=== PATIENT | female | born 1990 | race Caucasian/White ===

== ENCOUNTER 2019-03-25 04:26 | Inpatient (IN) | payer OTHER ==
[2019-03-25] MEDS ORDERED: BUTORPHANOL 1 MG/ML INJ IV PRN (04:50)
[2019-03-25] MEDS ORDERED: PENICILLIN 5 MU in NA CHLORIDE 0.9% 100 ML IV ONE (04:50)
[2019-03-25] MEDS ORDERED: PROMETHAZINE 25 MG/ML VIAL IM PRN (04:50)
[2019-03-25] MEDS ORDERED: Ringers Lactate 1,000 ML IV PRN (04:50)
[2019-03-25] MEDS ORDERED: METHYLERGONOVINE 0.2MG/ML AMP IM PRN (04:50)
[2019-03-25] MEDS ORDERED: CARBOPROST TROME 250 MCG/ML IM PRN (04:50)
[2019-03-25] MEDS ORDERED: Ringers Lactate 1,000 ML IV SCH (05:00)
[2019-03-25] MEDS ORDERED: OXYTOCIN/LR 20 UNITS/1,000 ML BAG IV SCH (05:00)
[2019-03-25 05:14] LABS: RPR Titer ND
[2019-03-25 05:17] LABS: Urine Appearance CLOUDY; Urine Bilirubin NEGATIVE (NEG); Urine Blood NEGATIVE (NEG); Urine Color YELLOW; Urine Glucose NEGATIVE (NEG); Urine Protein NEGATIVE (NEG); Urine Urobilinogen 0.2 mg/dL (0.2-1.0); Urine pH 6.5 (5.0-7.0)
[2019-03-25 05:18] LABS: Absolute Lymphocytes (CBC) 2.9 K/uL (0.7-4.9); Absolute Monocytes 1.2 K/uL (0.1-1.3); Absolute Neutrophil 10.7 K/uL (1.8-8.0); Basophils % 0.4 % (0-1.3); Eosinophils % 0.8 % (0-4.4); Hematocrit 30.3 % (36.0-45.0); Lymphocytes % 19.1 % (15.3-44.8); MPV 7.7 fL (7.6-11.3); RBC Red Blood Cell Count 3.68 M/uL (3.86-4.86)
[2019-03-25 05:25] LABS: Urine Microscopic Reflex ORDER UMIC
[2019-03-25 05:30] LABS: Urine Bacteria 20-50 /HPF (<20); Urine Culture Reflex Order REFLEXED; Urine RBC NONE SEEN /HPF (NONE SEEN)
[2019-03-25 05:49] VITALS: BMI 39.3
[2019-03-25] MEDS ORDERED: PENICILLIN 2.5 MU in NA CHLORIDE 0.9% 100 ML IV SCH (09:00)
[2019-03-25] MEDS ORDERED: LIDOCAINE 1% MPF 30 ML VIAL ONE (09:16)
[2019-03-25] MEDS ORDERED: BISACODYL 10 MG RECTAL SUPP RECT PRN (09:40)
[2019-03-25] MEDS ORDERED: ACETAMINOPHEN 500 MG TAB PO PRN (09:40)
[2019-03-25] MEDS ORDERED: DOCUSATE NA/SENNA CONC 1 TAB PO PRN (09:40)
[2019-03-25] MEDS ORDERED: Oxycodone HCl/Acetaminophen 1 TAB TAB PO PRN ×2 (09:40)
[2019-03-25] MEDS ORDERED: DIPHENHYDRAMINE 25 MG TAB/CAP PO PRN (09:40)
[2019-03-25] MEDS ORDERED: IBUPROFEN 200 MG TAB PO PRN (09:40)
[2019-03-25] MEDS ORDERED: OXYTOCIN/LR 20 UNIT/1,000 ML BAG IV SCH (10:00)
--- NOTE | 2019-03-25 13:49 | PREOPHP ---
Date of Admission: 03/25/2019 This is a 29-year-old female, 2, para 1, 39 weeks gestation, had been on thyroid me dications during the . Large body habitus. The patient is 3 cm, 60% effaced, vertex, -1 st ation. Darius regularly. Beta strep positive. She has received 1 dose of antibiotics at this point. We will continue of course during the labor. Full admission talk given. Rupture of membrane s, clear fluid. Anticipate more active labor, as the day progresses. KRYSTIN/MIK Voice ID: [id number]
[2019-03-25] MEDS: METHYLERGONOVINE 0.2 MG TAB PO PRN ×3 (14:02→22:00)
[2019-03-25] MEDS ORDERED: Ringers Lactate 1,000 ML IV ONE (14:39)
--- NOTE | 2019-03-25 14:42 | OP ---
Surgeon: Van Mahmood MD A 29-year-old, 2, para 1, 39 weeks gestation. Rh positive. Immune to Rubella. Positive bet a strep screen, 3 cm on admission. Rupture of membranes, clear fluid. The patient received 1 dose o f 5 million units of penicillin during the labor. After membrane rupture, went into active labor, we nt rapidly to complete. Second stage of 10 minutes or less. Spontaneous vaginal delivery of an paulie mated 8.5- to 9-pound male infant, Apgars 9 and 9. Loose nuchal cord x1. Second-degree laceration s imulating episiotomy, repaired with 2-0 chromic after local infiltration. Schultze delivery of the p lacenta, which was inspected and noted to be intact and normal. A 350 cc or less blood loss. The pa tient tolerated all procedures well. Final Diagnoses: 1.Term uterine , 39 weeks. 2.Thyroid medications have been taking during the . 3.Vaginal delivery. 4.Penicillin prophylaxis. KRYSTIN/MIK Voice ID: [id number] Report ID: [id number]
[2019-03-26] MEDS: METHYLERGONOVINE 0.2 MG TAB PO PRN (02:00)
[2019-03-26 05:08] LABS: RPR (Rapid Plasma Reagin) NON-REACT (NON-REACT)
[2019-03-26 07:24] VITALS: BP 126/84; TEMP 97.9
--- NOTE | 2019-03-27 11:39 | DS ---
Date of Discharge: 03/26/2019 Hospital Course: A 29-year-old female 2, para 1, 39 weeks. Delivered an 8 pounds 7-ounce male infant, Apgars 9 and 9. No episiotomy but a second-degree laceration simulating episiot mony, repaired with 2-0 chromic. Schultze delivery of the placenta, which was inspected and noted to be intact and normal. 350 cc blood loss. Penicillin prophylaxis x1 during the labor. Post i s afebrile, ambulating, voiding, lochia is normal. The patient's pulse has been a little high but in the 100 range but she says she is completely without any symptoms and the lochia is normal. She sangita l be dismissed later today to report back to my office in 6 weeks for followup. To report any temper ature elevation of 100 degrees or greater, severe pain, heavy bleeding, or any other type of abnormal ities. Dismissed with tramadol for analgesia although she may elect to take Motrin instead. She has had her Tdap immunization. Final Diagnoses: Term uterine 39 weeks. Vaginal delivery. Penicillin prophylaxis. KRYSTIN/MIK Voice ID: [id number] Report ID: [id number]
[2019-03-27 13:01] LABS: HBsAG Nonreactive (Nonreactive)
== END 2019-03-26 12:15 | disposition home or self-care (01) | DRG 807 ==
LOC: 2ND-WC 04:26
PROVIDERS: ADMIT Specialist; ATTEND Specialist
PROC: 10E0XZZ Delivery of Products of Conception, External Approach (ICD-10-PCS; principal; 2019-03-25)
PROC: 0KQM0ZZ Repair Perineum Muscle, Open Approach (ICD-10-PCS; 2019-03-25)
DX: O99.284 Endocrine, nutritional and metabolic diseases complicating childbirth (principal); Z37.0 Single live birth; O70.1 Second degree perineal laceration during delivery; O69.81X0 Labor and delivery complicated by cord around neck, without compression, not applicable or unspecified; Z3A.39 39 weeks gestation of pregnancy; E03.9 Hypothyroidism, unspecified; O99.824 Streptococcus B carrier state complicating childbirth
CPT/HCPCS: 36415; 81003; 81015; 82962; 85025; 86592; 86901; 87086; 87088; 87340; J0595; J2210; J2550; J2590

== ENCOUNTER 2022-03-23 03:59 | Inpatient (IN) | payer BC ==
[~2022-03-23 03:59] MED LIST: Ringers Lactate 1,000 ML IV PRN
[2022-03-23] MEDS ORDERED: OXYTOCIN/LR 1,000 ML IV SCH (04:00)
[2022-03-23] MEDS ORDERED: PROMETHAZINE INJ 25 MG/ML AMP IM PRN (04:00)
[2022-03-23] MEDS ORDERED: CARBOPROST TROME 250 MCG/ML IM PRN (04:00)
[2022-03-23] MEDS ORDERED: BUTORPHANOL 1 MG/ML INJ IV PRN (04:00)
[2022-03-23] MEDS ORDERED: METHYLERGONOVINE 0.2MG/ML AMP IM PRN (04:00)
[2022-03-23] MEDS: Ringers Lactate 1,000 ML IV SCH ×2 (04:11→08:25)
[2022-03-23] MEDS: PENICILLIN 5 MU in NA CHLORIDE 0.9% 100 ML IV ONE ×2 (04:11→04:26)
[2022-03-23] MEDS ORDERED: PENICILLIN G POT 5 MU/VIAL IV ONE (04:13)
[2022-03-23] MEDS ORDERED: OXYTOCIN/LR 20 UNIT/1,000 ML BAG IV ONE (04:13)
[2022-03-23] MEDS ORDERED: NA CHLORIDE 0.9% 1,000 ML ONE (04:14)
[2022-03-23] MEDS ORDERED: NA CHLORIDE 0.9% 100 ML ONE (04:14)
[2022-03-23] MEDS: OXYTOCIN/LR 20 UNIT/1,000 ML BAG IV SCH ×2 (04:18→04:55)
[2022-03-23 05:10] VITALS: BMI 39.6
[2022-03-23 06:26] LABS: Hematocrit 29.6 % (36.0-45.0); Lymphocytes % 20.3 % (15.3-44.8); MPV 6.7 fL (7.6-11.3); RBC Red Blood Cell Count 3.81 M/uL (3.86-4.86)
[2022-03-23 06:26] LABS: Urine Appearance Clear (Clear); Urine Bilirubin Negative (Negative); Urine Blood Negative (Negative); Urine Color Yellow (Yellow); Urine Glucose Negative (Negative); Urine Protein Negative (Negative); Urine Urobilinogen 0.2 mg/dL (0.2-1.0)
[2022-03-23 06:33] LABS: Urine Microscopic Reflex NO UMIC
[2022-03-23] MEDS ORDERED: PENICILLIN 2.5 MU in NA CHLORIDE 0.9% 100 ML IV SCH (09:00)
--- NOTE | 2022-03-23 09:51 | PN ---
The patient is 3 cm, 50% to 60% effaced, but the baby initially was against the cervix and then moved higher with the exam. I think it is prudent to wait for the baby to come down lower before we attem pt membrane of rupture. This was discussed with the patient and . She knows the membrane of rupture occurs on its own. She is to tell the nurse, so we make sure there is no cord problem. KRYSTIN/MIK Voice ID: [id number] Report ID: [id number]
--- NOTE | 2022-03-23 09:51 | PREOPHP ---
Date of Admission: 03/23/2022 History Of Present Illness: Jayla Babin is a -kimb-ptk, 3, para 2, 39 weeks gest ation, for induction. Pros and cons of this thoroughly discussed prior to admission. Family History: Maternal grandmother with gallstones. Father with kidney stones. Past Medical History: No serious medical illnesses. Past Surgical History: No past surgeries. Allergies: NO ALLERGIES. Medications: vitamins prior to admission. Social History: Does not smoke. Physical Examination: HEENT: Clear. Pupils equal, round, reactive to light and accommodation. Conjunctivae well perfused . No oral, lingual, or buccal lesions. Chest and Lungs: Clear. Heart: Without murmurs, thrills, heaves, or rubs. Breasts: Not examined, but on previous visits without masses. Abdomen: Massively obese. Extremities: Clear. Assessment And Plan: Pelvic exam in the office was 3 cm with vertex was still high, today cannot get to the cervix as this in posterior position in the bed and will allow a good exam without discomfort . We will wait until the baby is down lower and then check her again in about an hour. The patient is strep positive, started on antibiotics, and she is COVID positive, act ually without symptoms. KRYSTIN/MIK Voice ID: [id number]
[2022-03-23] MEDS ORDERED: LIDOCAINE 1% MPF 5 ML VIAL SQ ONE (12:00)
[2022-03-23] MEDS ORDERED: DOCUSATE NA/SENNA CONC 1 TAB PO PRN (12:50)
[2022-03-23] MEDS ORDERED: Oxycodone HCl/Acetaminophen 1 TAB TAB PO PRN ×2 (12:50)
[2022-03-23] MEDS ORDERED: BISACODYL 10 MG RECTAL SUPP PR PRN (12:50)
[2022-03-23] MEDS ORDERED: ACETAMINOPHEN 500 MG TAB PO PRN (12:50)
[2022-03-23] MEDS ORDERED: DIPHENHYDRAMINE 25 MG TAB/CAP PO PRN (12:50)
--- NOTE | 2022-03-23 12:57 | PN ---
The patient is homa regularly now. Baby looks good. Vital signs are all stable. Baby is now come down to -1 station, well applied. She is 1.5 to 5 cm, rupture of membranes, clear fluid. Anti cipate more rapid progress from this point forward. KRYSTIN/MIK Voice ID: [id number] Report ID: [id number]
[2022-03-23] MEDS ORDERED: OXYTOCIN/LR 20 UNIT/1,000 ML BAG IV SCH (13:00)
[2022-03-23] MEDS ORDERED: IBUPROFEN 600 MG TAB PO PRN (13:04)
--- NOTE | 2022-03-23 13:13 | OP ---
Surgeon: Van Mahmood MD Procedure In Detail: This is a 32-year-old, 3, para 2, at 39 weeks, for labor induction. Wa s noted to be COVID positive and strep positive. During the labor, she received 2 doses of penicilli n, first dose 5 million units, second dose 2.5 million units. During the labor, she received Stadol 1 mg IV and Phenergan 25 mg IM x1. Otherwise natural childbirth. At approximately 3.5 to 4 cm ruptu re of membranes was performed, clear fluid. The patient went to a very active labor pattern thereaft er. Second stage of 15 to 20 minutes. Spontaneous vaginal delivery of a 9-pound 13-ounce male infan t, Apgars 8 and 9. Mild shoulder dystocia. Flexion of shoulders and suprapubic pressure of effected delivery. Second-degree midline laceration simulating episiotomy repaired with 2-0 chromic under lo jony infiltration. Schultze delivery of the placenta, which was inspected and noted to be intact and normal. Mild uterine hypotonus. 0.2 mg of Methergine IM as well as IV drip Pitocin massage. Estima klever blood loss 350 to possibly 400. The patient tolerated all procedures well. She is asymptomatic as far as the COVID goes. Final Diagnoses: Term intrauterine at 39 weeks, labor induction, vaginal delivery, penicil addy prophylaxis, mild shoulder dystocia. Positive COVID status, asymptomatic. True knot in the cord , loose. KRYSTIN/MIK Voice ID: [id number] Report ID: [id number]
--- NOTE | 2022-03-24 07:16 | DS ---
Hospital Course: A 32-year-old, 3, para 2, 39 weeks gestation, delivered a 9 pounds 13 ounce s male , Apgars 8 and 9, mild shoulder dystocia, flexion of the legs and suprapubic pressure af fected easy delivery. Second-degree laceration sustained and repaired with 2-0 chromic. Starla edmond of the placenta. Uterus mildly hypotonic. 350 to 400 cc estimated blood loss, 0.2 mg of Meth ergine, as well as IV drip Pitocin. Uterus contracted down well. The patient was strep positive, wa s given 2 doses of penicillin during her labor. Stadol 1 mg IV, Phenergan 25 mg IM. Otherwise Lamaz e breathing techniques. The patient is also COVID positive, but completely asymptomatic. ; afebrile, ambulating, voiding. Lochia is normal. Will be dismissed later today. Report back to m y office in 6 weeks for followup. To report any temperature elevation of 100 degrees or greater, sev ere pain, heavy bleeding, or any other type of abnormalities. She has already had her Tdap shot. Fu instructions given. She is Rh positive and immune to Rubella. Final Diagnoses: Term intrauterine 39 weeks, labor induction, vaginal delivery, macr osomia, mild uterine hypotonus, penicillin prophylaxis for beta strep status. KRYSTIN/MIK Voice ID: [id number] Report ID: [id number]
[2022-03-24 12:17] VITALS: BP 122/78; TEMP 98.5
[2022-03-24 20:42] LABS: RPR (Rapid Plasma Reagin) NON-REACT (NON-REACT)
== END 2022-03-24 13:55 | disposition home or self-care (01) | DRG 805 ==
LOC: 2ND-WC 03:59
PROVIDERS: ADMIT Specialist; ATTEND Specialist
PROC: 10E0XZZ Delivery of Products of Conception, External Approach (ICD-10-PCS; principal; 2022-03-23)
PROC: 0HQ9XZZ Repair Perineum Skin, External Approach (ICD-10-PCS; 2022-03-23)
PROC: 3E033VJ Introduction of Other Hormone into Peripheral Vein, Percutaneous Approach (ICD-10-PCS; 2022-03-23)
DX: O70.0 First degree perineal laceration during delivery (principal); U07.1 COVID-19; Z37.0 Single live birth; O98.52 Other viral diseases complicating childbirth; O66.0 Obstructed labor due to shoulder dystocia; O99.824 Streptococcus B carrier state complicating childbirth; O69.2XX0 Labor and delivery complicated by other cord entanglement, with compression, not applicable or unspecified; Z3A.39 39 weeks gestation of pregnancy
CPT/HCPCS: 36415; 81003; 85025; 86592; 86901; 87340; J0595; J2210; J2540; J2550; J2590; J7030; J7120; U0003

== ENCOUNTER 2023-03-27 09:52 | Day surgery (SDC) | payer BC ==
[2023-03-23 10:01] LABS: Potassium 4.1 mEq/L (3.5-5.1)
[2023-03-27] MEDS ORDERED: CEFOXITIN SODIUM 2 GM/VIAL ONE (10:24)
[2023-03-27] MEDS ORDERED: Ringers Lactate 1,000 ML IV ONE (10:24)
[2023-03-27] MEDS ORDERED: BUPIVACAINE 0.25% PF 30 ML VIAL ONE (11:19)
[2023-03-27] MEDS ORDERED: FENTANYL CITR 100 MCG/2 ML ONE (11:26)
[2023-03-27] MEDS ORDERED: propofoL 200 MG/20 ML VIAL IV ONE (11:27)
[2023-03-27] MEDS ORDERED: ROCURONIUM 50 MG/5 ML VIAL IV ONE (11:28)
[2023-03-27] MEDS ORDERED: MIDAZOLAM HCL 2 MG/2 ML INJ ONE (11:29)
[2023-03-27] MEDS ORDERED: LIDOCAINE 2% MPF 5 ML VIAL ONE (11:29)
[2023-03-27] MEDS ORDERED: dexAMETHasone 4 MG/ML VIAL ONE (11:58)
[2023-03-27] MEDS ORDERED: KETOROLAC 30 MG/ML INJ ONE (12:33)
[2023-03-27] MEDS: HYDROMORPHONE HCL 1 MG/ML INJ ONE ×2 (12:54→13:01)
--- NOTE | 2023-03-27 12:59 | P.OP ---
Preoperative diagnosis: Chronic Cholecystitis Postoperative diagnosis: Chronic Cholecystitis Primary procedure: Laparoscopic Cholecystectomy with ICG Cholangiography Anesthesia: GETA + Local Estimated blood loss: <5cc Specimen: Gallbladder Findings: Floppy Gallbladder, cholelithiasis Complications: None Transferred to: Recovery Room Condition: Good
[2023-03-27] MEDS ORDERED: HYDROMORPHONE HCL 1 MG/ML INJ ONE (13:14)
--- NOTE | 2023-03-27 13:28 | OP ---
Date of Procedure: 03/27/2023 Surgeon: John Alejandro MD, Preoperative Diagnosis: Chronic cholecystitis. Postoperative Diagnosis: Chronic cholecystitis. Procedure Performed: Laparoscopic cholecystectomy with ICG that is indocyanine green cholangiography . Anesthesia: General endotracheal plus local with 0.25% Marcaine. Estimated Blood Loss: Less than 5 cc. Specimen: Gallbladder. Findings: Floppy gallbladder consistent with chronic cholecystitis and cholelithiasis. Complications: None. Disposition: The patient was transferred to the recovery room in good condition. Procedure In Detail: After informed consent was obtained, the patient was brought to the operating r oom, prepped and draped in the usual sterile fashion after adequate anesthesia was achieved. I anest hetized the area superior to the umbilicus down to subcutaneous tissues. I then inserted a 5 mm 0-de gree optical trocar into the abdomen without evidence of complication. Insufflation was obtained to 15 mmHg at this time. There was no injury to vital structure upon entry into the abdomen. Two addit ional trocars were placed, 1 in the epigastrium and 1 in the right upper quadrant. Both of these wer e similarly anesthetized, sharply incised. A 5 mm trocar was placed under direct visualization witho ut evidence of complication. The umbilical trocar site was then upsized to a 12 mm under direct visu alization without evidence of complication. The patient was positioned head up right-side up positio n. Ratcheted grasper was used to grasp the patient's gallbladder and placed toward the patient's rig ht shoulder. Dissection was continued down to expose 2 structures identified as both cystic duct and cystic artery. Both of these were skeletonized. Critical view of safety was obtained at this point . ICG cholangiography was performed at this point to confirm the anatomic structures, which were raad ntified at this point. The cystic duct, common duct confluence was appreciated and photographed at t his point. I encircled the area after skeletonizing the structures appropriately. Then, I clipped t he area with double titanium clips on the proximal side and singly on the distal side of both cystic duct and cystic artery. The 2 structures identified as the cystic duct and cystic artery were then t rimmed using Endo Leroy. I then removed the gallbladder fossa without evidence of complication anu garcia electrocautery. There were some minimal hemostatic requirements on the midportion of the hepatic f henry using electrocautery, which was easily controlled at this point. I then removed the gallbladder , placed in EndoCatch bag, removed through the umbilical trocar, and sent off for pathologic examinat ion. The area was then copiously irrigated multiple times and inspected for hemostasis. Clips were found to be in good anatomic position. There was no evidence of leakage of blood or bile at the end of the procedure. Remaining effluent was suctioned out until completely clear. I then inspected the abdomen last time. No additional maneuvers required. I then closed the umbilical trocar site using a Pablo-Arlene suture passer with 0 Vicryl in an interrupted fashion with good approximation of t issues. The abdomen was completely desufflated under direct visualization without evidence of compli cation. The remaining trocars were removed. All skin incisions were then copiously irrigated, close d with a 4-0 Monocryl in a running fashion. Dermabond placed over top. The patient tolerated the pr ocedure well without evidence of complication and transferred to PACU in good condition. All counts were correct at the end of the case. ASTRID/MIK Voice ID: [id number] Report ID: [id number]
[2023-03-27 13:41] VITALS: BP 106/70; TEMP 97.1; O2SAT 98
[2023-03-27] MEDS ORDERED: HYDROCODONE/APAP 5/325 MG TAB PO ONE (13:45)
[2023-03-27] MEDS ORDERED: HYDROCODONE/APAP 5/325 MG TAB ONE (13:58)
== END 2023-03-27 14:20 | disposition home or self-care (01) ==
LOC: OR 09:52
PROVIDERS: ATTEND Surgery
PROC: BF10YZZ Fluoroscopy of Bile Ducts using Other Contrast (ICD-10-PCS; 2023-03-27)
PROC: 0FT44ZZ Resection of Gallbladder, Percutaneous Endoscopic Approach (ICD-10-PCS; principal; 2023-03-27 11:30)
DX: K80.10 Calculus of gallbladder with chronic cholecystitis without obstruction (principal); D64.9 Anemia, unspecified
CPT/HCPCS: 80048; 36415; 88304; 47563; J2704; J1100; J2001; J2250; J3010; J1170 ×2; J0694; J7120; C9776